=== PATIENT | female | born 1960 ===

== ENCOUNTER 2017-10-24 10:05 | Emergency (ER) | payer OTHER ==
[2017-10-24 10:25] VITALS: BP 137/83; PULSE 72; RESP 16; TEMP 98; O2SAT 99
--- NOTE | 2017-10-24 10:38 | ED PDOC ---
HPI: General Adult Time Seen by Provider: 10/24/17 10:37 Chief Complaint (Nursing): ENT Problem Chief Complaint (Provider): ear pain History Per: Patient Additional Complaint(s): 56-year-old female presents with discomfort to both ears ongoing for about 2 weeks. Patient has decreased hearing from both ears. She denies any active drainage, no fever or chills, no headache or dizziness. PMD; none Past Medical History Reviewed: Historical Data, Nursing Documentation, Vital Signs Vital Signs: Last Vital Signs Temp 98 F 10/24/17 10:23 Pulse 72 10/24/17 10:23 Resp 16 10/24/17 10:23 BP 137/83 10/24/17 10:23 Pulse Ox 99 10/24/17 10:37 - Medical History PMH: No Chronic Diseases - Surgical History Other surgeries: hysterectomy - Family History Family History: States: No Known Family Hx - Living Arrangements Living Arrangements: With Family - Social History Current smoker - smoking cessation education provided: No Alcohol: None Drugs: Denies - Home Medications Home Medications: Ambulatory Orders Medication Instructions Recorded Acyclovir 800 mg PO 5XD #35 tab 03/16/15 Carbamide Peroxide [Murine Ear Wax 15 ml OT DAILY #1 bottle 10/24/17 Removal System] - Allergies Allergies/Adverse Reactions: Allergies Allergy/AdvReac Type Severity Reaction Status Date / Time Penicillins Allergy RASH Verified 10/24/17 10:25 Review of Systems ROS Statement: Except As Marked, All Systems Reviewed And Found Negative ENT: Positive for: Other (b/l ear discomfort). Negative for: Throat Pain Respiratory: Negative for: Cough Gastrointestinal: Negative for: Nausea, Vomiting Neurological: Negative for: Headache, Dizziness Physical Exam - Reviewed Nursing Documentation Reviewed: Yes Vital Signs Reviewed: Yes - Physical Exam Appears: Positive for: Well, Non-toxic, No Acute Distress Skin: Positive for: Normal Color. Negative for: Rash Eye Exam: Positive for: Normal appearance ENT: Positive for: Other (Cerumen noted to bilateral auditory canals, tympanic membranes are normal) Cardiovascular/Chest: Positive for: Regular Rate, Rhythm Respiratory: Positive for: Normal Breath Sounds Neurologic/Psych: Positive for: Alert, Oriented - ECG O2 Sat by Pulse Oximetry: 99 Pulse Ox Interpretation: Normal Medical Decision Making Medical Decision Makin-year-old female with cerumen impaction. Patient given prescription for Murine ear drops. She was referred to clinic for follow up. Disposition - Clinical Impression Clinical Impression: Excessive cerumen in both ear canals - Patient ED Disposition Is Patient to be Admitted: No Counseled Patient/Family Regarding: Diagnosis, Need For Followup, Rx Given - Disposition Referrals: [facility] [Outside] Disposition: Routine/Home Disposition Time: 10:57 Condition: STABLE Additional Instructions: Take rx meds as directed. Follow up with clinic. Prescriptions: Carbamide Peroxide [Murine Ear Wax Removal System] 15 ml OT DAILY #1 bottle Instructions: Ear Wax Impaction Forms: [employer] (Kazakh) Print Language: IRISH
== END 2017-10-24 11:22 | disposition home or self-care (01) ==
LOC: H.ER 10:05
DX: H61.23 Impacted cerumen, bilateral (principal); Z88.0 Allergy status to penicillin; Z90.710 Acquired absence of both cervix and uterus

== ENCOUNTER 2018-01-31 18:07 | Emergency (ER) | payer SELFPAY ==
[2018-01-31 18:22] VITALS: O2SAT 98
--- NOTE | 2018-01-31 19:29 | ED PDOC ---
HPI: Chest Pain Time Seen by Provider: 01/31/18 19:13 Chief Complaint (Nursing): Chest Pain History Per: Patient History/Exam Limitations: no limitations Onset/Duration Of Symptoms: Days Current Symptoms Are (Timing): Better Modifying Factors: None Exacerbating Factors: Turning Additional Complaint(s): No PMHx presenting with chest pain x 1 month, patient states that it comes and goes, does not radiate, is not associated with shortness of breath, diaphoresis , headache, nausea, or any other symptoms. States she's had continuous chest pain since 9AM this morning, states she took an advil this morning with relief. Denies cardiac history or significant family history of cardiac disease. Takes no medications. PMD: Clinic Past Medical History Reviewed: Historical Data, Nursing Documentation, Vital Signs Vital Signs: Last Vital Signs Temp 98.4 F 01/31/18 18:18 Pulse 68 01/31/18 18:38 Resp 18 01/31/18 18:18 BP 135/83 01/31/18 18:18 Pulse Ox 98 01/31/18 19:32 - Medical History PMH: No Chronic Diseases - Family History Family History: States: Unknown Family Hx - Home Medications Home Medications: Ambulatory Orders Medication Instructions Recorded Acyclovir 800 mg PO 5XD #35 tab 03/16/15 Carbamide Peroxide [Murine Ear Wax 15 ml OT DAILY #1 bottle 10/24/17 Removal System] - Allergies Allergies/Adverse Reactions: Allergies Allergy/AdvReac Type Severity Reaction Status Date / Time No Known Allergies Allergy Verified 01/31/18 18:18 GREGORY Risk Score for UA/NSTEMI - GREGORY Risk Score Age > 64: NO 3 or more CAD Risk Factors: NO Known CAD (Stenosis greater than 50%): NO Aspirin use in past 7 days: NO Severe Angina: NO EKG ST changes greater than 0.5mm: NO Positive Cardiac Marker: NO GREGORY Score: 0 Risk %: 5% Curb-65 Severity Score - CURB-65 Severity Score Confusion: No Bun >19mg/dl (>7mmol/L): No Respiratory Rate greater than/equal to 30: No Systolic BP <90 or Diastolic BP less than/equal 60mmHg: No Age >64: No Curb-65 Score: 0 Percentage 30-day mortality: 0.6% Review of Systems ROS Statement: Except As Marked, All Systems Reviewed And Found Negative Cardiovascular: Positive for: Chest Pain Physical Exam - Reviewed Nursing Documentation Reviewed: Yes Vital Signs Reviewed: Yes - Physical Exam Appears: Positive for: Well, Non-toxic, No Acute Distress Head Exam: Positive for: ATRAUMATIC, NORMAL INSPECTION, NORMOCEPHALIC Skin: Positive for: Normal Color, Warm, DRY Eye Exam: Positive for: EOMI, Normal appearance, PERRL ENT: Positive for: Normal ENT Inspection Neck: Positive for: Normal, Painless ROM Cardiovascular/Chest: Positive for: Regular Rate, Rhythm. Negative for: Chest Non Tender (Tenderness in mid-sternum) Respiratory: Positive for: CNT, Normal Breath Sounds Gastrointestinal/Abdominal: Positive for: Normal Exam, Soft Back: Positive for: Normal Inspection Extremity: Positive for: Normal ROM Neurologic/Psych: Positive for: Alert, Oriented - Laboratory Results Result Diagrams: 01/31/18 19:45 01/31/18 19:45 - ECG ECG: Positive for: Interpreted By Me ECG Rhythm: Positive for: Normal QRS, Normal ST Segment, Sinus Rhythm (65) O2 Sat by Pulse Oximetry: 98 Pulse Ox Interpretation: Normal Medical Decision Making Medical Decision MakinPM A/P: No PMHx presenting with chest pain -patient is very well appearing -EKG is normal, vitals are normal -not concerned for ACS given low GREGORY score, however will get troponin given continuos chest pain since 9AM to risk stratify patient -will check CXR to eval for PTX, PNA -likely patient having MSK pain, will give toradol 830PM -Labs and CXR reviewed: negative -Patient states she's feeling better after toradol -Explained to patient the importance of followup with PMD -Discharged in good condition,well appearing, ambulatory Disposition - Clinical Impression Clinical Impression: Atypical chest pain - Patient ED Disposition Is Patient to be Admitted: No - Disposition Referrals: [facility] [Outside] Disposition: Routine/Home Disposition Time: 20:36 Condition: STABLE Instructions: Chest Pain That Is Not Caused by the Heart (DC) Forms: [employer] (Turkmen) Print Language: SALVADOREAN
[2018-01-31 20:07] LABS: MEAN CELL VOLUME 90.6 fl (81.0-99.0); MEAN CORPUSCULAR HEMOGLOBIN 30.6 pg (27.0-31.0); MEAN CORPUSCULAR HGB CONC 33.7 g/dL (33.0-37.0); RBC 4.27 Mil/uL (3.80-5.20); RED CELL DISTRIBUTION WIDTH 14.2 % (11.5-14.5); WHITE BLOOD COUNT 8.5 K/uL (4.8-10.8)
[2018-01-31 20:19] LABS: BLOOD UREA NITROGEN 13 mg/dl (7-17); CALCIUM 9.6 mg/dL (8.4-10.2); GFR AFRICAN-AMERICAN > 60; GFR NON-AFRICAN AMERICAN > 60
[2018-01-31 21:06] VITALS: BP 111/67; PULSE 83; RESP 16; TEMP 98
--- NOTE | 2018-02-01 10:31 | RAD ---
Date of service: 01/31/2018 HISTORY: chest pain COMPARISON: No prior. TECHNIQUE: Chest PA and lateral FINDINGS: LUNGS: No active pulmonary disease. PLEURA: No significant pleural effusion identified. No pneumothorax apparent. CARDIOVASCULAR: Atherosclerotic aortic calcifications. Cardiomediastinal silhouette within normal limits. OSSEOUS STRUCTURES: Degenerative changes. VISUALIZED UPPER ABDOMEN: Normal. OTHER FINDINGS: None. IMPRESSION: No active disease.
== END 2018-01-31 21:04 | disposition home or self-care (01) ==
LOC: H.ER 18:07
DX: R07.89 Other chest pain (principal)
CPT/HCPCS: 71046; 80048; 84484; 85027; 96374; 99283; J1885

== ENCOUNTER 2018-10-29 13:22 | Emergency (ER) | payer OTHER, SELFPAY ==
[2018-10-29 13:32] VITALS: BMI 33.7
[2018-10-29] MEDS ORDERED: Naproxen 500 MG TAB PO STA (14:13)
[2018-10-29] MEDS ORDERED: Naproxen 500 MG TAB PO ONE (14:49)
--- NOTE | 2018-10-29 15:18 | ED PDOC ---
HPI: Female Pain Time Seen by Provider: 10/29/18 13:56 Chief Complaint (Nursing): Female Genitourinary Chief Complaint (Provider): Female Genitourinary History Per: Cad Intern ([id number]) History/Exam Limitations: no limitations Onset/Duration Of Symptoms: Days (x4) Current Symptoms Are (Timing): Still Present Additional Complaint(s): Patient is a 57 year old female with a past medical history of UTI, who presents to the emergency department complaining of x4 days of dysuria and suprapubic pain associated with vaginal burning on urination with foul odor. She notes that she gets these UTIs every 1-2 years and feels that this is similar. Patient reports to have no blood in her urine, nausea, vomiting, back pain or fever. Denies being sexually active or any vaginal discharge. She also states that she has x1 day of mouth dryness and that her mouth feels rough. She does have some pain when she swallows but is still able to. Patient denies any difficulty breathing or drooling. PMD: No provider Past Medical History Reviewed: Historical Data, Nursing Documentation, Vital Signs Vital Signs: Last Vital Signs Temp 98.7 F 10/29/18 13:32 Pulse 80 10/29/18 13:32 Resp 17 10/29/18 13:32 BP 144/88 10/29/18 13:32 Pulse Ox 96 10/29/18 13:32 - Medical History PMH: No Chronic Diseases Other PMH: UTI - Surgical History Surgical History: No Surg Hx - Family History Family History: States: Unknown Family Hx - Social History Current smoker - smoking cessation education provided: No Ex-Smoker (has not smoked in the last 12 months): No Alcohol: None Drugs: Denies - Home Medications Home Medications: Ambulatory Orders Medication Instructions Recorded Acyclovir 800 mg PO 5XD #35 tab 03/16/15 Carbamide Peroxide [Murine Ear Wax 15 ml OT DAILY #1 bottle 10/24/17 Removal System] Naproxen [Naprosyn] 500 mg PO BID #30 tablet 01/31/18 Cephalexin [Keflex] 500 mg PO TID 7 Days #21 capsule 10/29/18 Naproxen 500 mg PO BID PRN #20 tab 10/29/18 Phenazopyridine [Pyridium] 200 mg PO TID 2 Days #6 tab 10/29/18 - Allergies Allergies/Adverse Reactions: Allergies Allergy/AdvReac Type Severity Reaction Status Date / Time No Known Allergies Allergy Verified 01/31/18 18:18 Review of Systems ROS Statement: Except As Marked, All Systems Reviewed And Found Negative Constitutional: Negative for: Fever Respiratory: Negative for: Other (difficulty breathing) Gastrointestinal: Positive for: Abdominal Pain (suprapubic pain). Negative for: Nausea, Vomiting Genitourinary Female: Positive for: Dysuria (with burning sensation and foul order when urinating). Negative for: Vaginal Bleeding Musculoskeletal: Negative for: Back Pain Physical Exam - Reviewed Nursing Documentation Reviewed: Yes Vital Signs Reviewed: Yes - Physical Exam Comments: GENERAL APPEARANCE: Patient is awake, alert, oriented x 3, in no acute distress. SKIN: Warm, dry; (-) cyanosis. EYES: (-) conjunctival pallor. ENMT: Mucous membranes: no decrease in moisture, Airway patent: (+) uvula midline, (-) obstruction, (-) stridor. Pharynx: (-) swelling, (-) tonsilar exudates, (+) mild erythema (-)trismus NECK: (-) tenderness, (-) stiffness, (-) lymphadenopathy. CHEST AND RESPIRATORY: (-) wheezing; (-) rales, (-) rhonchi, (-) rub; breath sounds equal bilaterally. HEART AND CARDIOVASCULAR: (-) irregularity; (-) murmur, (-) gallop. ABDOMEN AND GI: Soft; (+) mild suprapubic tenderness. (-)rebound (-)guarding (- )masses BACK: (-) CVA tenderness EXTREMITIES: (-) deformity, (-) edema. NEURO AND PSYCH: Mental status as above; (-) focal findings. - ECG O2 Sat by Pulse Oximetry: 96 (RA) Pulse Ox Interpretation: Normal Medical Decision Making Medical Decision Making: Time: 1412 Plan: --Naproxen 500 mg PO --Pyridium 200 mg PO --urine culture --Throat culture --Rapid strep group A antigen --Urinalysis Time: 1610 Cad Intern number: [id number] --Provider discussed results with patient. --Patient states her pain is better. --Patient's abdomen is soft and non-tender. -- Urine shows UTI, will start on antibiotics and f/u with clinic Discussed results, diagnosis, treatment, return precautions and f/u with pt who is understanding, in agreement and stable for dc Scribe Attestation: Documented by Lee Chanel acting as a scribe for Ry Huitron PA-C. Provider Scribe Attestation: All medical record entries made by the Scribe were at my direction and personally dictated by me. I have reviewed the chart and agree that the record accurately reflects my personal performance of the history, physical exam, medical decision making, and the department course for this patient. I have also personally directed, reviewed, and agree with the discharge instructions and disposition. Disposition - Clinical Impression Clinical Impression: Urinary tract infection, Pharyngitis - Patient ED Disposition Is Patient to be Admitted: No Counseled Patient/Family Regarding: Studies Performed, Diagnosis, Need For Followup, Rx Given - Disposition Referrals: [facility] [Outside] Disposition: Routine/Home Disposition Time: 16:13 Condition: IMPROVED Additional Instructions: [place] los antibiticos segn lo prescrito hasta que termine. [place] los medicamentos segn lo prescrito para el dolor. Descansa, maksim muchos lquidos. Theresa por dejarnos cuidar de ti hoy. Usted fue tratado por dusty infeccin del tracto urinario. La atencin mdica de emergencia que recibi hoy se dirigi a marilyn sntomas agudos. Si le recetaron algn medicamento, llnelo y tmelo segn las indicaciones. Los sntomas pueden tardar varios patel en resolverse. Regrese al Departamento de Emergencias si marilyn sntomas empeoran, no mejoran o si tiene otros problemas. Comunquese con brasher mdico dentro de 2 patel para dusty nueva evaluacin y brandon un seguimiento o llame a esperanza de los mdicos / clnicas a los que nuñez sido referido y que figuran en el formulario de Informacin de visita al paciente que se incluye en brasher paquete de rahul. Lleve todos los documentos que recibi al momento del rahul junto con los medicamentos que est tomando para brasher visita de seguimiento. Nuestro tratamiento no puede reemplazar la atencin mdica continua por parte de un proveedor de atencin primaria (PCP) fuera del departamento de emergencias. Prescriptions: Cephalexin [Keflex] 500 mg PO TID 7 Days #21 capsule Naproxen 500 mg PO BID PRN #20 tab PRN Reason: Pain, Moderate (4-7) Phenazopyridine [Pyridium] 200 mg PO TID 2 Days #6 tab Instructions: Urinary Tract Infections in Adults, Sore Throat in Adults Forms: [employer] (Bengali) Print Language: GREEK - POA Present On Arrival: None Results - Lab Results Lab Results: 10/29/18 10/29/18 14:20 14:20 Urine Color Yellow Urine Clarity Cloudy Urine pH 6.0 Ur Specific [place] 1.006 Urine Protein Negative Urine Glucose (UA) Neg Urine Ketones Negative Urine Blood Large Urine Nitrate Negative Urine Bilirubin Negative Urine Urobilinogen 0.2-1.0 Ur Leukocyte Esterase Large Urine RBC (Auto) 46 H Urine WBC Clumps (Auto) Many H Urine Microscopic WBC 543 H Ur Squamous Epith Cells < 1 Urine Bacteria Rare Grp A Beta Strep Ag Negative
[2018-10-29 15:31] LABS: SQUAMOUS EPITHIAL < 1 /hpf (0-5); URINE BACTERIA RARE (<OCC); URINE BILIRUBIN NEGATIVE (NEGATIVE); URINE BLOOD LARGE (NEGATIVE); URINE CLARITY CLOUDY (Clear); URINE COLOR YELLOW (YELLOW); URINE GLUCOSE (UA) NEG (NEGATIVE); URINE LEUKOCYTE ESTERASE LARGE Leu/uL (Negative); URINE PROTEIN NEGATIVE (NEGATIVE); URINE UROBILINOGEN 0.2-1.0 mg/dL (0.2-1.0); WBC CLUMPS MANY /hpf
[2018-10-29 16:48] VITALS: BP 138/74; PULSE 78; RESP 16; TEMP 97.2
[2018-10-29 16:49] VITALS: O2SAT 96
== END 2018-10-29 16:47 | disposition home or self-care (01) ==
LOC: H.ER 13:22
DX: N39.0 Urinary tract infection, site not specified (principal); J02.9 Acute pharyngitis, unspecified; Z87.891 Personal history of nicotine dependence